=== PATIENT | female | born 1965 | race Caucasian/White ===

== ENCOUNTER 2020-12-07 22:52 | Emergency (ER) | payer OTHER ==
[~2020-12-07] VITALS: Ht 167.6 cm; Wt 81.7 kg
[~2020-12-07 22:52] MED LIST: KEFLEX500 MG PO; THYROID; [UNRECOGNIZED DRUG - REMARK]
[2020-12-07] MEDS ORDERED: LEVOTHYROXINE75 MCG PO (23:39)
== END 2020-12-08 00:16 | disposition home or self-care (01) ==
LOC: ED 22:52
DX: M76.62 Achilles tendinitis, left leg (principal); G62.9 Polyneuropathy, unspecified; Z88.5 Allergy status to narcotic agent
CPT/HCPCS: 99283

== ENCOUNTER 2021-07-14 09:07 | Emergency (ER) | payer OTHER ==
[~2021-07-14] VITALS: Ht 167.6 cm; Wt 81.7 kg
[~2021-07-14 09:07] MED LIST changes: +LEVOTHYROXINE75 MCG PO
--- NOTE | 2021-07-14 13:24 | EKG ---
[facility] [address] [facility] [place], [place] [address] Signed Normal sinus rhythm Normal ECG No previous ECGs available Confirmed by JAVIER EBE DO ([id number]) on 07/14/2021 1:23:49 PM Electronically Signed By: JAVIER BEE DO 07/14/21 1324 PATIENT NAME: ORION WALL SONA Electrocardiogram DATE OF : 61 PHYSICIAN: JAVIER BEE DO REPORT #: [id number] REPORT IS CONFIDENTIAL AND NOT TO BE RELEASED WITHOUT AUTHORIZATION
--- NOTE | 2021-07-14 13:24 | EKG ---
[facility] [address] [facility] [place], [place] [address] Signed Normal sinus rhythm Normal ECG When compared with ECG of 14-JUL-2021 09:16, (Unconfirmed) No significant change was found Confirmed by JAVIER BEE DO ([id number]) on 07/14/2021 1:23:54 PM Electronically Signed By: JAVIER BEE DO 07/14/21 1324 PATIENT NAME: ORION WALL Electrocardiogram DATE OF : 61 PHYSICIAN: JAVIER BEE DO REPORT #: [id number] REPORT IS CONFIDENTIAL AND NOT TO BE RELEASED WITHOUT AUTHORIZATION
--- NOTE | 2021-07-14 13:25 | EKG ---
[facility] [address] [facility] [place], [place] [address] Signed Normal sinus rhythm Normal ECG When compared with ECG of 14-JUL-2021 10:31, (Unconfirmed) No significant change was found Confirmed by JAVIER BEE DO ([id number]) on 07/14/2021 1:25:19 PM Electronically Signed By: JAVIER BEE DO 07/14/21 1325 PATIENT NAME: ORION WALL Electrocardiogram DATE OF : 61 PHYSICIAN: JAVIER BEE DO REPORT #: [id number] REPORT IS CONFIDENTIAL AND NOT TO BE RELEASED WITHOUT AUTHORIZATION
== END 2021-07-14 13:55 | disposition home or self-care (01) ==
LOC: ED 09:07
DX: R07.9 Chest pain, unspecified (principal); R10.13 Epigastric pain; E03.9 Hypothyroidism, unspecified; Z90.49 Acquired absence of other specified parts of digestive tract; Z90.89 Acquired absence of other organs; Z90.710 Acquired absence of both cervix and uterus; Z88.5 Allergy status to narcotic agent; Z79.899 Other long term (current) drug therapy
CPT/HCPCS: 71045; 80053; 84484; 85025; 93005; 93010; 96374; 96375; 99285-25; C9803; J2405; J3010; U0003

== ENCOUNTER 2024-02-20 09:33 | Day surgery (SDC) | payer OTHER ==
[~2024-02-20] VITALS: Ht 167.6 cm; Wt 85.9 kg
[~2024-02-20 09:33] MED LIST changes: +IBLOOD GLUCOSE TEST STRIP 1 EA TEST VI PRN; +LACTATED RINGER'S 1,000 ML IV SCH; +LIDOCAINE HCL 1% 5 ML SDV INJ ONE; +LIDOCAINE HCL 4% 50 ML BTL TOP SCH; +MIDAZOLAM HCL 5 MG/5 ML VIAL IV PRN; +fentaNYL citrate 100 MCG/2 ML VIAL IV PRN
[2024-02-20 09:54] VITALS: BP 123/82
[2024-02-20] MEDS ORDERED: MULTI VITAMIN1 EACH PO (09:57)
[2024-02-20] MEDS ORDERED: MIDAZOLAM HCL 5 MG/5 ML VIAL ONE (10:52)
[2024-02-20] MEDS ORDERED: fentaNYL citrate 100 MCG/2 ML VIAL ONE (10:52)
--- NOTE | 2024-02-20 11:54 | NUR ---
02/20/24 1154 Mikayla Quinonez PATIENT ARRIVES IN PACU AWAKE AND TALKING WITH RN. DR HERNANDEZ PRESENTS TO THE BEDSIDE AND IS SPEAKING WITH PATIENT.
[2024-02-20 12:18] VITALS: BP 114/80
--- NOTE | 2024-02-20 15:28 | OR ---
[facility] [address] [place], [place] [address] Signed DATE OF OPERATION: 02/20/2024 SURGEON: Christian Hernandez MD PREOPERATIVE DIAGNOSES: 1. Clinical gastroesophageal reflux. 2. Colon screening. POSTOPERATIVE DIAGNOSES: 1. Distal esophagitis with linear ulceration in distal esophagus (small). 2. Poor flap valve. 3. Diverticular changes of sigmoid and left colon. 4. Multiple hyperplastic polyps. PROCEDURES: 1. Esophagogastroduodenoscopy with biopsy. 2. Total colonoscopy to cecum with cold morcellation polypectomy x7. ANESTHESIA: Intravenous sedation; fentanyl 200 mcg and Versed 5 mg total. INDICATIONS: This 58-year-old white woman is a patient of VLADISLAV Singh. She is being evaluated for incisional hernia repair. She had laparoscopic cholecystectomy and has developed a hernia at the trocar site at the umbilicus. She also has history of hysterectomy and excision of the ovary, which may have contributed to the hernia development. The patient underwent upper endoscopy and colonoscopy in 2009 at that time showing esophagitis and diverticulosis as well as a hepatic flexure polyp. She does have reflux type symptoms and no actual dysphagia. She does not smoke and does not drink alcohol routinely. She has no family history of colon cancer. She is admitted at this time to undergo upper endoscopy and colonoscopy. She understands the risk of bleeding, infection, and perforation. FINDINGS: Upper endoscopy did show distal esophagitis with a linear ulcerated area. No signs were present of De Souza esophagus, certainly no neoplasm. There was no stricture. Stomach also had antral gastritis and is noted. On colonoscopy, the prep was good. Complete colonoscopy was undertaken. There was a small polyp of the right colon which was excised and seven polyps of the sigmoid, likely hyperplastic, all excised as well. Diverticula were noted too. Electronically Signed By: CHRISTIAN HERNANDEZ MD 02/20/24 1528 PATIENT NAME: ORION WALL OPERATIVE REPORT DATE OF : 61 REPORT #: [id number] PHYSICIAN: CHRISTIAN HERNANDEZ MD PCP: JHONNY SAAVEDRA REPORT IS CONFIDENTIAL AND NOT TO BE RELEASED WITHOUT AUTHORIZATION [facility] [address] [place], [place] [address] Signed DESCRIPTION OF PROCEDURE: The patient was brought to the endoscopy suite and given topical lidocaine hypopharyngeal anesthesia and placed in the lateral decubitus position. A bite block was placed. An Olympus video upper endoscope was passed in the hypopharynx. The vocal cords were visualized as normal. Scope was advanced to the esophagus, throughout its length it was normal except in the distal portion where there was mild inflammatory change and a linear ulcerated area. There was no sign of stricture, neoplasm, or De Souza's epithelium. The scope was advanced to the stomach which was insufflated with air. Rugal folds were normal. There were few gastric polyps of the proximal stomach, some of which were later biopsied. The scope was advanced to the pylorus, which was normal. Scope was passed through into the duodenum, which was normal. Biopsies were taken of the duodenum. The scope was withdrawn and there appeared to be signs of chronic gastritis. There was no sign of ulcer. The scope was withdrawn and retroflexed view was undertaken showing a reasonably normal flap valve that was easily with a retroflexed view. The scope was withdrawn and biopsies then taken of the distal esophagus and ultimately the mid esophagus. Plans were then made for colonoscopy. Additional sedation was given. Digital rectal examination was performed. An Olympus video colonoscope passed in the rectum. Scope was manipulated throughout the colon ultimately intubating the cecum. The ileocecal valve and appendiceal orifice were normal. There were scattered diverticula noted throughout the colon including the right colon. A small polyp was noted at the proximal ascending colon, this was excised with cold morcellation technique. Further withdrawal showed no sign of abnormality other than diverticula of the left colon and the sigmoid but at the rectosigmoid there were several small whitish appearing probably hyperplastic polyps. Six in total were identified and excised. The scope was withdrawn. Retroflexed view of the rectum was normal. Scope was removed and the patient was taken to the recovery room in good condition having suffered no complication. CONCLUDING DIAGNOSES: 1. Clinical gastroesophageal reflux symptoms and distal esophagitis and antral gastritis. Would recommend Prilosec 20 mg daily. 2. Diverticular changes sigmoid and elsewhere through the colon and several small hyperplastic polyps. PLAN: Recommend repeat colonoscopy in 5 years if polyps were hyperplastic, sooner if adenomatous. The patient will return to see us in six weeks. Consideration for repair of incisional hernia will be made as well. Electronically Signed By: CHRISTIAN HERNANDEZ MD 02/20/24 1528 PATIENT NAME: ORION WALL OPERATIVE REPORT DATE OF : 61 REPORT #: [id number] PHYSICIAN: CHRISTIAN HERNANDEZ MD PCP: JHONNY SAAVEDRA REPORT IS CONFIDENTIAL AND NOT TO BE RELEASED WITHOUT AUTHORIZATION [address] [address] Signed MD JEAN Go/MODL /[id number] cc: VLADISLAV Singh Copies: JHONNY SAAVEDRA ~ Electronically Signed By: CHRISTIAN HERNANDEZ MD 02/20/24 1528 PATIENT NAME: MAEGLENROYORION JO OPERATIVE REPORT DATE OF : 61 REPORT #: [id number] PHYSICIAN: CHRISTIAN HERNANDEZ MD PCP: JHONNY SAAVEDRA REPORT IS CONFIDENTIAL AND NOT TO BE RELEASED WITHOUT AUTHORIZATION
--- NOTE | 2024-02-26 16:21 | PATH ---
[facility] [address] [place], [place] [address] Signed SPECIMEN(S): A DUODENAL BIOPSY SPECIMEN(S): B ANTRUM BIOPSY SPECIMEN(S): C STOMACH BIOPSY SPECIMEN(S): D LOWER ESOPHAGUS BIOPSY SPECIMEN(S): E MID ESOPHAGUS BIOPSY SPECIMEN(S): F ASCENDING RIGHT COLON POLYP SPECIMEN(S): G SIGMOID POLYP SPECIMEN SOURCE: A. DUODENAL BIOPSY B. ANTRUM BIOPSY C. STOMACH BIOPSY D. LOWER ESOPHAGUS BIOPSY E. MID ESOPHAGUS BIOPSY F. ASCENDING RIGHT COLON POLYP G. SIGMOID POLYP CLINICAL HISTORY: GERD with esophagitis, history of polyps. Postop: Distal esophagitis, antral gastritis, gastric polyps, polyps x 7, diverticulitis. FINAL PATHOLOGIC DIAGNOSIS: A. Duodenal biopsy: - Benign duodenal mucosa, negative for specific diagnostic abnormality. B. Antrum, biopsy: - Benign gastric mucosa with focal slight chronic inflammation. - Negative for evidence of Helicobacter organisms on routine HE stained sections. C. Stomach, biopsy: - Benign fundic gland polyp (one fragment). - Negative for evidence of Helicobacter organisms on routine HE stained sections. D. Lower esophagus, biopsy - Benign esophageal mucosa, negative for increased epithelial eosinophils. - Negative for glandular mucosa. E. Mid esophagus, biopsy: - Benign esophageal mucosa, negative for increased epithelial eosinophils. F. Ascending right colon polyp: - Polypoid colonic mucosa with slight adenomatous change (one fragment). G. Sigmoid polyp: - Hyperplastic polyp (multiple fragments). PATIENT NAME: SANDIP,ORION MAGALLANES PATHOLOGY DATE OF : 61 REPORT #: [id number] PHYSICIAN: JACK PATHOLOGY PCP: JHONNY SAAVEDRA REPORT IS CONFIDENTIAL AND NOT TO BE RELEASED WITHOUT AUTHORIZATION [facility] [address] [place], [place] [address] Signed MTR:cml MICROSCOPIC EXAMINATION: Histologic sections of all submitted blocks are examined by light microscopy. These findings, together with the gross examination, support the pathologic diagnosis. GROSS DESCRIPTION: A. The specimen, labeled and designated "Sandip, designation per requisition, duodenum biopsy," is received in formalin and consists of three fragments of soft hdz tissue that are up to 0.3 cm in greatest dimension. Entirely submitted in (A1). B. The specimen, labeled and designated "Sandip, designation per requisition, antrum/pylorus biopsy," is received in formalin and consists of two fragments of soft hdz tissue that are up to 0.6 cm in greatest dimension. Entirely submitted in (B1). C. The specimen, labeled and designated "Sandip, designation per requisition, stomach biopsy," is received in formalin and consists of one fragment of soft hdz tissue that is up to 0.4 cm in greatest dimension. Entirely submitted in (C1). D. The specimen, labeled and designated "[place], designation per requisition lower esophagus biopsy," is received in formalin and consists of four fragments of soft hdz tissue that are up to 0.3 cm in greatest dimension. Entirely submitted in (D1). E. The specimen, labeled and designated "[place], designation per requisition, ascending/right polyp," is received in formalin and consists of three fragments of soft hdz tissue that are up to 0.4 cm in greatest dimension. Entirely submitted in (E1). F. The specimen, labeled and designated "Sandip, designation per requisition ascending/right polyp," is received in formalin and consists of two fragments of soft hdz tissue that are up to 0.4 cm in greatest dimension. Entirely submitted in (F1). G. The specimen, labeled and designated "Sandip, designation per requisition sigmoid polyp," is received in formalin and consists of six fragments of soft hdz tissue that are up to 0.9 cm in greatest dimension. Entirely submitted in (G1). TW (under the direct supervision of a pathologist) The Gross Description was prepared using a voice recognition system. The report was reviewed for accuracy; however, sound-alike word errors, addition and/or deletions may occur. If there is any PATIENT NAME: ORION WALL PATHOLOGY DATE OF : 61 REPORT #: [id number] PHYSICIAN: JACK SNELL PCP: JHONNY SAAVEDRA REPORT IS CONFIDENTIAL AND NOT TO BE RELEASED WITHOUT AUTHORIZATION [address] [address] Signed question about this report, please contact Client Services. PERFORMING LABORATORY: Technical component was performed by [facility], [address] [place] [id number] (CLIA# [id number]). Professional interpretation was performed by [facility], [address] [place] [address], [place] [address] (CLIA#: [id number]). Diagnostician: Michael Chowdary MD Pathologist Electronically Signed 02/26/2024 Copies: ~ PATIENT NAME: ORION WALL SONA PATHOLOGY DATE OF : 61 REPORT #: [id number] PHYSICIAN: JACK SNELL PCP: JHONNY SAAVEDRA REPORT IS CONFIDENTIAL AND NOT TO BE RELEASED WITHOUT AUTHORIZATION
== END 2024-02-20 12:24 | disposition home or self-care (01) ==
LOC: OPS 09:33 → DS 09:41 → OPS 10:30
PROVIDERS: ATTEND Surgery
PROC: 0DB28ZX Excision of Middle Esophagus, Via Natural or Artificial Opening Endoscopic, Diagnostic (ICD-10-PCS; 2024-02-20)
PROC: 0DB38ZX Excision of Lower Esophagus, Via Natural or Artificial Opening Endoscopic, Diagnostic (ICD-10-PCS; 2024-02-20)
PROC: 0DBK8ZX Excision of Ascending Colon, Via Natural or Artificial Opening Endoscopic, Diagnostic (ICD-10-PCS; 2024-02-20)
PROC: 0DBN8ZX Excision of Sigmoid Colon, Via Natural or Artificial Opening Endoscopic, Diagnostic (ICD-10-PCS; 2024-02-20)
PROC: 0DBG8ZX Excision of Left Large Intestine, Via Natural or Artificial Opening Endoscopic, Diagnostic (ICD-10-PCS; 2024-02-20)
PROC: 0DB98ZX Excision of Duodenum, Via Natural or Artificial Opening Endoscopic, Diagnostic (ICD-10-PCS; principal; 2024-02-20 10:30)
PROC: 0DB68ZX Excision of Stomach, Via Natural or Artificial Opening Endoscopic, Diagnostic (ICD-10-PCS; 2024-02-20 10:30)
DX: Z12.11 Encounter for screening for malignant neoplasm of colon (principal); D12.2 Benign neoplasm of ascending colon; K63.5 Polyp of colon; K29.50 Unspecified chronic gastritis without bleeding; K21.00 Gastro-esophageal reflux disease with esophagitis, without bleeding; K31.7 Polyp of stomach and duodenum; K22.10 Ulcer of esophagus without bleeding; K57.30 Diverticulosis of large intestine without perforation or abscess without bleeding; K43.2 Incisional hernia without obstruction or gangrene
CPT/HCPCS: 99153; G0500; J2250; J3010; J7121

== ENCOUNTER 2024-03-23 05:52 | Day surgery (SDC) | payer OTHER ==
[2024-03-16 09:35] VITALS: BP 129/89
[~2024-03-23] VITALS: Ht 167.6 cm; Wt 84.1 kg
[~2024-03-23 05:52] MED LIST changes: -IBLOOD GLUCOSE TEST STRIP 1 EA TEST VI PRN; -LIDOCAINE HCL 1% 5 ML SDV INJ ONE; -LIDOCAINE HCL 4% 50 ML BTL TOP SCH; +MAG DELAY64 M1 PO; -MIDAZOLAM HCL 5 MG/5 ML VIAL IV PRN; +MULTI VITAMIN1 EACH PO; +PROBIOTIC1 EAC8 PO; -fentaNYL citrate 100 MCG/2 ML VIAL IV PRN
[2024-03-23 06:00] VITALS: BP 127/76
[2024-03-23] MEDS ORDERED: CEFAZOLIN SODIUM 2 GM/20 ML SYR IV SCH (07:00)
[2024-03-23] MEDS ORDERED: LIDOCAINE HCL 1% 5 ML SDV INJ ONE (07:00)
[2024-03-23] MEDS ORDERED: HEParin SOD (PORCINE) 5,000 UNIT/0.5 ML SYR SUB-Q SCH (07:00)
[2024-03-23] MEDS ORDERED: IBLOOD GLUCOSE TEST STRIP 1 EA TEST VI PRN ×2 (07:00→09:00)
[2024-03-23] MEDS ORDERED: dexmedeTOMIDine HCl 200 MCG/2 ML VIAL ONE (07:26)
[2024-03-23] MEDS ORDERED: ondansetron HCL 4 MG/2 ML VIAL ONE (07:26)
[2024-03-23] MEDS ORDERED: KETOROLAC TROMETHAMINE 30 MG/ML VIAL ONE (07:26)
[2024-03-23] MEDS ORDERED: DEXAMETHASONE SOD PHOS 4 MG/ML VIAL ONE (07:26)
[2024-03-23] MEDS ORDERED: fentaNYL citrate 100 MCG/2 ML VIAL ONE (07:26)
[2024-03-23] MEDS ORDERED: propofoL 200 MG/20 ML VIAL ONE (07:26)
[2024-03-23] MEDS ORDERED: ACETAMINOPHEN 1,000 MG/100 ML VIAL ONE (07:27)
[2024-03-23] MEDS ORDERED: LIDOCAINE HCL 2% 5 ML SDV ONE (07:27)
[2024-03-23] MEDS ORDERED: ROCURONIUM BROMIDE 50 MG/5 ML SYR ONE (07:41)
[2024-03-23] MEDS ORDERED: KETAMINE in NS 50 MG/5 ML SYR ONE (07:43)
--- NOTE | 2024-03-23 07:43 | NUR ---
VISITED DURING SPIRITUAL CARE ROUNDS. PT LEAVING FOR PROCEDURE. DID NOT INTRUDE. PROVIDED PRAYER.
[2024-03-23] MEDS ORDERED: ePHEDrine sulfate 50 MG/ML AMP ONE (07:59)
[2024-03-23] MEDS ORDERED: fentaNYL citrate 50 MCG/ML SDV IV PRN (09:00)
[2024-03-23] MEDS ORDERED: SUGAMMADEX SODIUM 200 MG/2 ML ML ONE (09:00)
[2024-03-23] MEDS ORDERED: ondansetron HCL 4 MG/2 ML VIAL IV PRN (09:00)
[2024-03-23] MEDS ORDERED: NALOXONE HCL 0.4 MG SYR IV PRN ×2 (09:00→09:45)
--- NOTE | 2024-03-23 09:26 | NUR ---
03/23/24 0926 Sujata Ordaz 0918-PATIENT ARRIVED TO PACU ON 6L MASK REACTIVE COUGHING. HOB ELEVATED AND PILLOW APPLIED TO ABDOMEN. PATIENT SUCTIONED THIN CLEAR SECRETIONS. PATIENT ORIENTED TO PACU. SR. IVF INFUSING. ABDOMINAL DRESSING CDI WITH ABD BINDER IN PLACE. 0920-PATIENT CONTINUES TO COUGH PILLOW APPLIED TO ABD AND MOUTH SUCTIONED. PATIENT UNABLE TO STATE IF IN PAIN OR NAUSEA CLOSES EYES. 6L MASK 99% 0926-PATIENT SLEEPING 6L MASK RR EVEN 99%
[2024-03-23] MEDS ORDERED: OXYCODON-ACETA1 EAC2 PO (09:43)
[2024-03-23] MEDS ORDERED: IBUPROFEN600 MG PO (09:43)
[2024-03-23] MEDS ORDERED: ACETAMINOPHEN500 MG PO (09:43)
[2024-03-23] MEDS ORDERED: ACETAMINOPHEN 500 MG TAB PO PRN (09:45)
[2024-03-23] MEDS ORDERED: IBUPROFEN 600 MG TAB PO PRN (09:45)
[2024-03-23] MEDS ORDERED: OXYCODONE/APAP 7.5/325 TAB PO PRN (09:45)
[2024-03-23] MEDS ORDERED: LACTATED RINGER'S 1,000 ML IV SCH (09:45)
[2024-03-23] MEDS ORDERED: EPINEPHRINE 2.25% 0.5 ML AMP NEB ONE (10:00)
[2024-03-23] MEDS ORDERED: droPERidol 5 MG/2 ML VIAL IV PRN (10:00)
[2024-03-23 10:36] VITALS: BP 113/67
[2024-03-23] MEDS ORDERED: ALBUTEROL/IPRATROPIUM 3 ML NEB ONE (10:52)
--- NOTE | 2024-03-23 10:55 | NUR ---
LE 1035 PATIENT BACK TO ROOM 4 DAY SURGERY. PATIENT ALERT AND ORIENTED. PATIENT COUGHING. PATIENT OXYGEN SATURATIONS MAINTAINING ABOVE 90% ON ROOM AIR BUT WILL DESAT TO 88%. PATIENT HAS LEFT SIDE PAIN BUT UNABLE TO RATE IT. PATIENT DENIES BEING NAUSEATED. PATIENT SURGICAL SITE CLEAN, DRY AND INTACT. ABDOMINAL BINDER ON. LE 1045 PATIENT WANTING UP TO WALK. PATIENT WALKED AROUND THE UNIT. PATIENT DE SATED TO 88%. JORGE LUIS, APARTMENT LEASING AGENT AWARE. CXR AND DUONEB ORDERED. CALL LIGHT WITHIN REACH. NO FUTHER NEEDS. NO QUESTIONS.
[2024-03-23] MEDS ORDERED: ALBUTEROL/IPRATROPIUM 3 ML NEB INH ONE (11:00)
[2024-03-23 11:21] VITALS: BP 121/67
--- NOTE | 2024-03-23 11:45 | NUR ---
LE 1050 RT IN ROOM DOING DUONEB TREATMENT. LE 1100 X RAY IN TO GET CHEST X-RAY. LE 1135 PATIENT ALERT AND ORIENTED. PATIENT STATES "THAT TREATMENT MADE ME FEEL BETTER" OXYGEN SATURATIONS ABOVE 90% ON ROOM AIR. PATIENT GIVEN PRN PAIN MEDICINE. PATIENT PAIN IS A 7/10. PATIENT DENIES BEING NAUSEATED. PATIENT SURGICAL SITE CLEAN, DRY AND INTACT. SCD'S ON. IVF SALINE LOCKED. PATIENT AT BEDSIDE. CALL LIGHT WITHIN REACH. NO QUESTIONS AT THIS TIME.
[2024-03-23 12:35] VITALS: BP 126/73
--- NOTE | 2024-03-23 12:57 | NUR ---
LE 1215 PATIENT SLEEPING OXYGEN SATURATIONS BETWEEN 88-90% ON ROOM AIR. DISCUSSED WITH DR. HERNANDEZ. NO NEW ORDERS AT THIS TIME. LE 1235 PATIENT AMBULATED AROUND THE UNIT. PATIENT BACK TO ROOM OXYGEN AT 96%. PATIENT ON CONTINOUS PLUSE OX. SURGICAL SITE CLEAN, DRY AND INTACT. PATIENT GIVEN PERSCRIPTION. CALL LIGHT WITHIN REACH. NO FUTHER NEEDS. NO QUESTIONS AT THIS TIME.
[2024-03-23 13:35] VITALS: BP 128/69
--- NOTE | 2024-03-23 14:41 | NUR ---
LE 1315 PATIENT ABLE TO AMBULATE TO THE RESTROOM PATIENT ABLE TO VOID 600 MLS OF CLEAR AND YELLOW URINE. PATIENT BACK TO DAY SURGERY ROOM. OXYGEN SATURATIONS MAINTAINING NOW ABOVE 90% ON ROOM AIR. LE 1430 PATIENT HAS MET DISCHARGE CRITERIA. PATIENT GIVEN DISCHARGE INSTRUCTIONS. NO QUESTIONS AT THIS TIME. PATIENT IV D/C'D WNL. PATIENT WHEELED OUT OF FACILITY TO PRIVATE AUTO.
--- NOTE | 2024-03-25 09:47 | OR ---
[facility] [address] [place], [place] [address] Signed DATE OF OPERATION: 03/23/2024 SURGEON: Christian Hernandez MD PREOPERATIVE DIAGNOSIS: Incisional hernia in the region of umbilicus. POSTOPERATIVE DIAGNOSIS: Incisional hernia cephalad to the umbilicus, fascial defect 7 cm. PROCEDURE: Repair of incisional hernia (7 cm with implantation of Prolene mesh) underlay technique and transverse reapproximation of fascia. ANESTHESIA: General endotracheal, [place], CONTINUOUS TOWEL ROLLER and local 10 mL of 0.25% Marcaine with epinephrine. INDICATION: This 58-year-old white woman is a patient of VLADISLAV Singh. The patient has had increasing pain and feeling "sick" which she attributes to findings at the umbilicus, which includes a bulky hernia. It is recalled she underwent laparoscopic cholecystectomy in the past as well as history of hysterectomy with excision of ovary by a midline incisional approach. She is admitted at this time to undergo repair of the hernia. She understands the risk of bleeding, infection, recurrence and so on. FINDINGS: The defect was cephalad to the umbilicus. Her previous incision was cephalad and inferior to the umbilicus extending to the symphysis pubis. The fascial defect was 7 cm. Within the hernia dominantly . Repair consisted of reconstituting the peritoneum developing the properitoneal space and implanting prolene mesh in the properitoneal space as well as transverse reapproximation of the fascia. PROCEDURE IN DETAIL: The patient was brought to the operating room, given a general endotracheal anesthetic. Preoperative antibiotic Ancef was given. Sequential compression device stockings were used and heparin subcutaneously administered. The abdomen was prepared with a chlorhexidine solution and draped sterilely. Palpation revealed the bulky hernia to be cephalad to the umbilicus. A previous midline incision extended above the umbilicus and down to the symphysis pubis. An incision was made above the umbilicus in the area Electronically Signed By: CHRISTIAN HERNANDEZ MD 03/25/24 0947 PATIENT NAME: ORION WALL OPERATIVE REPORT DATE OF : 61 REPORT #: [id number] PHYSICIAN: CHRISTIAN HERNANDEZ MD PCP: JHONNY SAAVEDRA REPORT IS CONFIDENTIAL AND NOT TO BE RELEASED WITHOUT AUTHORIZATION [facility] [address] [place] [id number] Signed cephalad to the previous incision somewhat and extending down to the umbilicus itself. Dissection was carried through the thick abdominal wall pannus, ultimately identifying soft and filmy hernia sac which was bluntly from surrounding subcutaneous tissue. The fascial defect was defined well against the herniated viscus and hernia sac. The hernia sac was entered within the hernia itself. The properitoneal space was developed in the retromuscular space circumferentially. The peritoneum that was freed up was ultimately reapproximated with 2-0 Vicryl suture. A space at least 4 cm circumferentially was developed. A segment of Prolene mesh 6 inches x 6 inches was cut to the elliptical configuration and secured in the properitoneal space with interrupted 0 Prolene sutures with Prolene pledgets. Wide overlap of the defect was accomplished. The midline fascia was then reapproximated transversely with interrupted 0 Prolene sutures in a horizontal mattress configuration using Prolene pledgets with stability also. 10 mL of 0.25% Marcaine with epinephrine was injected locally. The fascial defect repaired was 7 cm. Arlyn's layer was reapproximated with interrupted 2-0 Vicryl. The skin was closed with running subcuticular 3-0 Vicryl. Steri-Strips were applied as was an Acticoat dressing. The patient was ultimately extubated. She did have a fair amount of coughing and straining. Stabilization of the wound was undertaken with direct abdominal pressure. Once cleared, she was transferred to the recovery room in good condition with an abdominal binder in place. MD JEAN Go/BERTA /[id number] cc: VLADISLAV Singh Copies: JHONNY SAAVEDRA ~ Electronically Signed By: CHRISTIAN HERNANDEZ MD 03/25/24 0947 PATIENT NAME: ORION WALL OPERATIVE REPORT DATE OF : 61 REPORT #: [id number] PHYSICIAN: CHRISTIAN HERNANDEZ MD PCP: JHONNY SAAVEDRA REPORT IS CONFIDENTIAL AND NOT TO BE RELEASED WITHOUT AUTHORIZATION
== END 2024-03-23 14:30 | disposition home or self-care (01) ==
LOC: DS 05:52
PROVIDERS: ATTEND Surgery
PROC: 0WUF0JZ Supplement Abdominal Wall with Synthetic Substitute, Open Approach (ICD-10-PCS; principal; 2024-03-23 07:30)
DX: K43.2 Incisional hernia without obstruction or gangrene (principal); K21.9 Gastro-esophageal reflux disease without esophagitis
CPT/HCPCS: 00750; 71045; 94640; A9270; C1781; J0131; J0690; J1100; J1644; J1885; J2001; J2405; J2704; J3010; J3490; J7121

== ENCOUNTER 2025-03-03 09:49 | Emergency (ER) | payer OTHER ==
[~2025-03-03] VITALS: Ht 167.6 cm; Wt 82.0 kg
[~2025-03-03 09:49] MED LIST changes: +ACETAMINOPHEN500 MG PO; +IBUPROFEN600 MG PO; -LACTATED RINGER'S 1,000 ML IV SCH; +OXYCODON-ACETA1 EAC2 PO
[2025-03-03] MEDS ORDERED: GABAPENTIN300 MG PO (10:20)
[2025-03-03] MEDS ORDERED: PREDNISONE50 MG PO (10:21)
[2025-03-03] MEDS ORDERED: HYDROCODON-ACE1 EA11 PO (10:22)
[2025-03-03] MEDS ORDERED: VALACYCLOVIR1000 MG PO (10:22)
[2025-03-03] MEDS ORDERED: KETOROLAC TROMETHAMINE 30 MG/ML VIAL IV ONE (10:30)
[2025-03-03] MEDS ORDERED: SODIUM CHLORIDE 0.9% 1,000 ML IV ONE (10:30)
[2025-03-03 10:43] LABS: BASOPHILS 0.4 % (0.1-1.2); EOSINOPHILS 0 % (0.7-5.8); LYMPHOCYTES 16.2 % (19.3-51.7); MCH 28.5 PG (25.6-32.2); MCHC 33.7 g/dL (32.2-35.5); MCV 84.3 fL (79.4-94.8); MONOCYTES 2.7 % (4.7-12.5); NEUTROPHILS 80.4 % (34.0-71.1); RBC 4.92 M/uL (3.93-5.22)
[2025-03-03 11:00] LABS: ALT (SGPT) 43.0 U/L (14-59); AST (SGOT) 12.0 U/L (15-37); GLOMERULAR FILTRATION RATE,EST 63.0 mL/min (>60); PROTEIN, TOTAL 7.0 g/dL (6.4-8.2); UREA NITROGEN 17.0 mg/dL (7-18)
[2025-03-03] MEDS ORDERED: ONDANSETRON ODT8 MG PO (11:41)
[2025-03-03 11:51] VITALS: BP 131/83
== END 2025-03-03 11:51 | disposition home or self-care (01) ==
LOC: ED 09:49
PROVIDERS: Emergency Medicine
DX: B02.9 Zoster without complications (principal); Z88.5 Allergy status to narcotic agent
CPT/HCPCS: 36415; 80053; 85025; 96374; 96375; 99283-25; J1885; J2405; J7030